=== PATIENT | male | born 1950 | race Caucasian/White ===

== ENCOUNTER 2018-03-03 09:34 | Observation (INO) | payer MEDICARE ==
[~2018-03-03] VITALS: Ht 185.4 cm; Wt 143.9 kg
[2018-03-03] MEDS ORDERED: ASPIRIN 81 MG TABLET CHEW PO ONE (10:00)
[2018-03-03 10:08] LABS: BASOPHILS # (AUTO) 0.04 x10^3/uL (0-0.1); BASOPHILS % (AUTO) 1 % (0-1); EOSINOPHILS # (AUTO) 0.19 x10^3/uL (0-0.4); EOSINOPHILS % (AUTO) 3 % (1-7); LYMPHOCYTES # (AUTO) 1.37 x10^3/uL (1-3.4); LYMPHOCYTES % (AUTO) 18 % (22-44); MD NO; MEAN CORPUSCULAR HEMOGLOBIN 28.5 pg (27.5-34.5); MEAN CORPUSCULAR HGB CONC 33.4 g/dL (33.2-36.2); MEAN CORPUSCULAR VOLUME 85.3 fL (81-97); MEAN PLATELET VOLUME 10.3 fL (7.4-10.4); MONOCYTES # (AUTO) 0.78 x10^3/uL (0.2-0.8); MONOCYTES % (AUTO) 10 % (2-9); NEUTROPHILS # (AUTO) 5.11 x10^3/uL (1.8-6.8); NEUTROPHILS % (AUTO) 68 % (42-75); PLATELET COUNT 159 x10^3/uL (130-400); RED BLOOD COUNT 6.05 x10^6/uL (4.38-5.82); RED CELL DISTRIBUTION WIDTH 14.5 % (9.4-14.8)
[2018-03-03 10:15] LABS: ALANINE AMINOTRANSFERASE 32 U/L (12-78); ALBUMIN 3.8 g/dL (3.4-5.0); ANION GAP 7 mmol/L (5-15); CALCIUM 7.9 mg/dL (8.5-10.1); CHLORIDE 109 mmol/L (98-107); CREATININE 1.13 mg/dL (0.7-1.3)
[2018-03-03 10:19] LABS: ALKALINE PHOSPHATASE 63 U/L (45-117); BILIRUBIN,TOTAL 1.1 mg/dL (0.2-1.0); TROPONIN I < 0.015 ng/mL (0.000-0.045)
[2018-03-03] MEDS ORDERED: ASPIRIN 81 MG TABLET CHEW ONE (10:40)
[2018-03-03] MEDS ORDERED: SODIUM CHLORIDE 0.9% 1,000 ML IV SCH (11:13)
[2018-03-03] MEDS ORDERED: DOCUSATE 100 MG CAPSULE PO PRN (11:30)
[2018-03-03] MEDS ORDERED: ONDANSETRON 2MG/ML, 2ML IVPush PRN (11:30)
[2018-03-03] MEDS ORDERED: ENALAPRILAT 1.25 MG/ML, 2ML IV PRN (11:30)
[2018-03-03] MEDS ORDERED: ACETAMINOPHEN 325 MG TABLET PO PRN (11:30)
[2018-03-03] MEDS ORDERED: LABETALOL 5MG/ML, 20ML IVPush PRN (11:30)
[2018-03-03] MEDS ORDERED: POLYETHYLENE GLYCOL 17 GM PACKET PO PRN (11:30)
[2018-03-03] MEDS ORDERED: hydrALAzine 20 MG/ML, 1ML IV PRN (11:30)
[2018-03-03] MEDS ORDERED: NITROGLYCERIN 0.4 MG/SPRAY SL PRN (11:30)
[2018-03-03] MEDS ORDERED: NITROGLYCERIN 0.4 MG BOTTLE (25 TABS) SL PRN (11:30)
[2018-03-03] MEDS: SODIUM CHLORIDE 0.9% 1,000 ML IV SCH ×4 (12:00→20:09)
[2018-03-03 12:16] LABS: INTERNATIONAL NORMALIZED RATIO 0.99 (0.93-1.1); PROTHROMBIN TIME 10.5 Seconds (9.6-11.5)
[2018-03-03 12:24] LABS: CHOL/HDL RATIO 4.5; CHOLESTEROL, TOTAL 226 mg/dL (140-239); HDL CHOL % 22 % (26-37); HDL CHOLESTEROL (DIRECT) 50 mg/dL (40-60); LDL CHOLESTEROL,CALCULATED 155 mg/dL (54-169); LDL/HDL RATIO 3.1 (0.5-3.0); TRIGLYCERIDES 107 mg/dL (50-200); TROPONIN I < 0.015 ng/mL (0.000-0.045); VLDL CHOLESTEROL 21 mg/dL (0-25)
[2018-03-03 12:58] VITALS: BP 150/84
[2018-03-03] MEDS ORDERED: TICAGRELOR 90 MG TABLET ONE (13:31)
[2018-03-03] MEDS ORDERED: VERAPAMIL 2.5 MG/ML, 2ML ONE (13:31)
[2018-03-03] MEDS ORDERED: MIDAZOLAM 1 MG/ML, 5ML ONE (13:31)
[2018-03-03] MEDS ORDERED: FENTANYL PF 100 MCG/2ML ONE (13:31)
[2018-03-03] MEDS ORDERED: HEPARIN 1,000 UNITS/ML, 10ML ONE (13:32)
[2018-03-03] MEDS ORDERED: BIVALIRUDIN 250 MG ONE (13:32)
[2018-03-03] MEDS ORDERED: hydrALAzine 20 MG/ML, 1ML ONE (14:15)
[2018-03-03] MEDS: HEPARIN 5,000 UNITS/ML, 1ML SQ SCH ×2 (16:20→21:07)
[2018-03-03] MEDS ORDERED: LISINOPRIL 10 MG TABLET ONE (17:02)
[2018-03-03 20:55] VITALS: BP 151/87
[2018-03-03] MEDS ORDERED: ATORVASTATIN 40 MG TABLET PO SCH (21:00)
[2018-03-03] MEDS: LISINOPRIL 10 MG TABLET PO SCH (21:06)
[2018-03-03] MEDS: TICAGRELOR 90 MG TABLET PO SCH (21:06)
[2018-03-04 02:25] VITALS: BP 165/85
[2018-03-04 04:51] LABS: ANION GAP 8 mmol/L (5-15); CALCIUM 7.7 mg/dL (8.5-10.1); CHLORIDE 109 mmol/L (98-107); CREATININE 0.91 mg/dL (0.7-1.3)
[2018-03-04] MEDS: HEPARIN 5,000 UNITS/ML, 1ML SQ SCH (05:30)
[2018-03-04] MEDS ORDERED: METOPROLOL SUCCINATE 25 MG TAB.ER.24H PO SCH (06:00)
[2018-03-04] MEDS: TICAGRELOR 90 MG TABLET PO SCH (08:52)
[2018-03-04] MEDS: LISINOPRIL 10 MG TABLET PO SCH (08:53)
[2018-03-04] MEDS ORDERED: ASPIRIN 81 MG TABLET EC PO SCH (09:00)
[2018-03-04] MEDS ORDERED: SENNA/DOCUSATE TABLET PO SCH (09:00)
[2018-03-04 09:06] VITALS: BP 145/70
[2018-03-04] MEDS ORDERED: TICA90TA PO (12:32)
[2018-03-04] MEDS ORDERED: METO25TA91 PO ×2 (12:32)
[2018-03-04] MEDS ORDERED: ASPI81TA45 PO (12:32)
[2018-03-04] MEDS ORDERED: LISI-167 PO (12:32)
[2018-03-04] MEDS ORDERED: ATOR40TA78 PO (12:32)
== END 2018-03-04 13:59 | disposition home or self-care (01) ==
LOC: ED 10:20 → INTOOBSV 10:29 → EDIP 10:29 → 5SO 12:15
PROVIDERS: ADMIT Internal Medicine; ATTEND Family Medicine
DX: I25.110 Atherosclerotic heart disease of native coronary artery with unstable angina pectoris (principal); I24.9 Acute ischemic heart disease, unspecified; E66.9 Obesity, unspecified; R00.1 Bradycardia, unspecified; E78.5 Hyperlipidemia, unspecified; I10 Essential (primary) hypertension; I25.2 Old myocardial infarction; Z68.41 Body mass index [BMI] 40.0-44.9, adult; Z82.49 Family history of ischemic heart disease and other diseases of the circulatory system; Z87.891 Personal history of nicotine dependence
CPT/HCPCS: 36415; 71045; 80048; 80053; 80061; 84484; 85014; 85018; 85025; 85610; 93005; 93306; 93458; 96372; 96374; 99156; 99157; 99284; C1725; C1769; C1874; C1887; C1894; C9600; G0378; J0360; J0583; J1644; J2250; J3010; Q9967

== ENCOUNTER 2018-06-21 13:08 | Inpatient (IN) | payer MEDICARE ==
[~2018-06-21] VITALS: Ht 185.4 cm; Wt 129.0 kg
[~2018-06-21 13:08] MED LIST: ASPI81TA45 PO; ATOR40TA78 PO; LISI-167 PO; METO25TA91 PO; TICA90TA PO
[2018-06-21] MEDS ORDERED: ASPIRIN 81 MG TABLET CHEW PO ONE (13:30)
[2018-06-21 14:20] LABS: BASOPHILS # (AUTO) 0.06 x10^3/uL (0-0.1); BASOPHILS % (AUTO) 1 % (0-1); EOSINOPHILS # (AUTO) 0.13 x10^3/uL (0-0.4); EOSINOPHILS % (AUTO) 1 % (1-7); LYMPHOCYTES # (AUTO) 0.98 x10^3/uL (1-3.4); LYMPHOCYTES % (AUTO) 11 % (22-44); MD NO; MEAN CORPUSCULAR HEMOGLOBIN 29.1 pg (27.5-34.5); MEAN CORPUSCULAR HGB CONC 33.4 g/dL (33.2-36.2); MEAN CORPUSCULAR VOLUME 87.2 fL (81-97); MEAN PLATELET VOLUME 9.9 fL (7.4-10.4); MONOCYTES # (AUTO) 1.01 x10^3/uL (0.2-0.8); MONOCYTES % (AUTO) 11 % (2-9); NEUTROPHILS # (AUTO) 7.14 x10^3/uL (1.8-6.8); NEUTROPHILS % (AUTO) 77 % (42-75); PLATELET COUNT 222 x10^3/uL (130-400); RED BLOOD COUNT 5.24 x10^6/uL (4.38-5.82); RED CELL DISTRIBUTION WIDTH 14.1 % (9.4-14.8)
[2018-06-21] MEDS ORDERED: ASPIRIN 81 MG TABLET EC ONE (14:20)
[2018-06-21] MEDS ORDERED: MORPHINE SULFATE 4 MG/ML, 1ML ONE (14:21)
[2018-06-21 14:23] LABS: ALANINE AMINOTRANSFERASE 352 U/L (12-78); ALBUMIN 3.2 g/dL (3.4-5.0); ANION GAP 6 mmol/L (5-15); CALCIUM 8.7 mg/dL (8.5-10.1); CHLORIDE 101 mmol/L (98-107); CREATININE 1.18 mg/dL (0.7-1.3)
[2018-06-21 14:27] LABS: ALKALINE PHOSPHATASE 290 U/L (45-117); BILIRUBIN,TOTAL 2.6 mg/dL (0.2-1.0); TOTAL PROTEIN 7.1 g/dL (6.4-8.2); TROPONIN I < 0.015 ng/mL (0.000-0.045)
[2018-06-21] MEDS: MORPHINE SULFATE 4 MG/ML, 1ML IVPush PRN ×2 (14:32→19:37)
[2018-06-21 16:43] LABS: MICROSCOPIC NOT IND
[2018-06-21 16:45] LABS: CULTURE INDICATED? NO
[2018-06-21] MEDS: SODIUM CHLORIDE 0.9% 1,000 ML IV SCH (16:53)
[2018-06-21] MEDS ORDERED: CHLO25TA PO (16:54)
[2018-06-21] MEDS ORDERED: NITROGLYCERIN 0.4 MG/SPRAY SL PRN (17:00)
[2018-06-21] MEDS ORDERED: hydrALAzine 20 MG/ML, 1ML IVPush PRN (17:00)
[2018-06-21] MEDS ORDERED: ONDANSETRON 2MG/ML, 2ML IVPush PRN (17:00)
[2018-06-21] MEDS ORDERED: DOCUSATE 100 MG CAPSULE PO PRN (17:00)
[2018-06-21] MEDS ORDERED: NITROGLYCERIN 0.4 MG BOTTLE (25 TABS) SL PRN (17:00)
--- NOTE | 2018-06-21 17:17 | NUR ---
pt to mri. pt is uncomfortable with getting and mri at this time due to cardiac stent placement. admitting provider made aware of this. mri called to hold on order. pt to send home son at this time to get the stent card before going forward with procedure.
[2018-06-21 17:30] LABS: THYROID STIMULATING HORMONE 2.39 mIU/L (0.358-3.740)
[2018-06-21 20:04] VITALS: BP 113/68
[2018-06-21] MEDS: TICAGRELOR 90 MG TABLET PO SCH (21:56)
[2018-06-21] MEDS: LISINOPRIL 10 MG TABLET PO SCH ×2 (21:56→22:15)
[2018-06-21] MEDS: FAMOTIDINE 20 MG/2 ML IVPush SCH (21:58)
[2018-06-22 01:41] VITALS: BP 94/52
[2018-06-22 06:11] LABS: BASOPHILS # (AUTO) 0.04 x10^3/uL (0-0.1); BASOPHILS % (AUTO) 1 % (0-1); EOSINOPHILS # (AUTO) 0.24 x10^3/uL (0-0.4); EOSINOPHILS % (AUTO) 4 % (1-7); LYMPHOCYTES # (AUTO) 0.96 x10^3/uL (1-3.4); LYMPHOCYTES % (AUTO) 14 % (22-44); MD NO; MEAN CORPUSCULAR HEMOGLOBIN 29.2 pg (27.5-34.5); MEAN CORPUSCULAR HGB CONC 33.7 g/dL (33.2-36.2); MEAN CORPUSCULAR VOLUME 86.4 fL (81-97); MEAN PLATELET VOLUME 9.5 fL (7.4-10.4); MONOCYTES # (AUTO) 0.81 x10^3/uL (0.2-0.8); MONOCYTES % (AUTO) 12 % (2-9); NEUTROPHILS # (AUTO) 4.61 x10^3/uL (1.8-6.8); NEUTROPHILS % (AUTO) 69 % (42-75); PLATELET COUNT 184 x10^3/uL (130-400); RED BLOOD COUNT 4.95 x10^6/uL (4.38-5.82); RED CELL DISTRIBUTION WIDTH 14.5 % (9.4-14.8)
[2018-06-22 06:17] LABS: ALBUMIN 2.8 g/dL (3.4-5.0); ANION GAP 8 mmol/L (5-15); CALCIUM 8.2 mg/dL (8.5-10.1); CHLORIDE 104 mmol/L (98-107)
[2018-06-22 06:22] LABS: ALANINE AMINOTRANSFERASE 787 U/L (12-78); ALKALINE PHOSPHATASE 343 U/L (45-117); BILIRUBIN,TOTAL 2.2 mg/dL (0.2-1.0); CREATININE 0.91 mg/dL (0.7-1.3); TOTAL PROTEIN 6.4 g/dL (6.4-8.2)
[2018-06-22 08:00] VITALS: BP 105/60
[2018-06-22] MEDS: ASPIRIN 81 MG TABLET EC PO SCH (09:00)
[2018-06-22] MEDS: LISINOPRIL 10 MG TABLET PO SCH (09:00)
[2018-06-22] MEDS: TICAGRELOR 90 MG TABLET PO SCH ×2 (09:00→09:20)
[2018-06-22] MEDS: FAMOTIDINE 20 MG/2 ML IVPush SCH ×2 (09:12→21:08)
[2018-06-22] MEDS: SODIUM CHLORIDE 0.9% 1,000 ML IV SCH (09:12)
[2018-06-22 14:00] VITALS: BP 100/62
[2018-06-22 18:45] VITALS: BP 122/77
[2018-06-23] MEDS: SODIUM CHLORIDE 0.9% 1,000 ML IV SCH ×2 (00:01→14:00)
[2018-06-23 01:10] VITALS: BP 93/57
[2018-06-23 06:13] LABS: BASOPHILS # (AUTO) 0.07 x10^3/uL (0-0.1); BASOPHILS % (AUTO) 1 % (0-1); EOSINOPHILS # (AUTO) 0.35 x10^3/uL (0-0.4); EOSINOPHILS % (AUTO) 5 % (1-7); LYMPHOCYTES # (AUTO) 1.43 x10^3/uL (1-3.4); LYMPHOCYTES % (AUTO) 20 % (22-44); MD NO; MEAN CORPUSCULAR HEMOGLOBIN 29.3 pg (27.5-34.5); MEAN CORPUSCULAR HGB CONC 33.7 g/dL (33.2-36.2); MEAN PLATELET VOLUME 9.4 fL (7.4-10.4); MONOCYTES # (AUTO) 0.79 x10^3/uL (0.2-0.8); MONOCYTES % (AUTO) 11 % (2-9); NEUTROPHILS # (AUTO) 4.47 x10^3/uL (1.8-6.8); NEUTROPHILS % (AUTO) 63 % (42-75); PLATELET COUNT 212 x10^3/uL (130-400); RED BLOOD COUNT 4.85 x10^6/uL (4.38-5.82); RED CELL DISTRIBUTION WIDTH 14.3 % (9.4-14.8)
[2018-06-23 06:22] LABS: ALBUMIN 2.8 g/dL (3.4-5.0); ANION GAP 6 mmol/L (5-15); CALCIUM 8.1 mg/dL (8.5-10.1); CHLORIDE 106 mmol/L (98-107)
[2018-06-23 06:26] LABS: ALANINE AMINOTRANSFERASE 502 U/L (12-78); ALKALINE PHOSPHATASE 271 U/L (45-117); BILIRUBIN,TOTAL 1.2 mg/dL (0.2-1.0); CREATININE 0.98 mg/dL (0.7-1.3); TOTAL PROTEIN 6.2 g/dL (6.4-8.2)
[2018-06-23 07:58] VITALS: BP 117/77
[2018-06-23] MEDS: FAMOTIDINE 20 MG/2 ML IVPush SCH ×2 (09:00→20:05)
[2018-06-23] MEDS: ASPIRIN 81 MG TABLET EC PO SCH (09:00)
[2018-06-23] MEDS: TICAGRELOR 90 MG TABLET PO SCH (09:00)
[2018-06-23] MEDS ORDERED: GLYCOPYRROLATE 0.2MG/1ML, 5ML ONE (09:54)
[2018-06-23] MEDS ORDERED: ROCURONIUM 10MG/ML,5ML ONE (09:54)
[2018-06-23] MEDS ORDERED: NEOSTIGMINE 1 MG/ML, 10ML ONE (09:54)
[2018-06-23] MEDS ORDERED: PROPOFOL 10 MG/ML, 20ML ONE (09:54)
[2018-06-23] MEDS ORDERED: CEFOTETAN 2 GM ONE (09:54)
[2018-06-23] MEDS ORDERED: FENTANYL PF 250 MCG/5ML ONE (14:28)
[2018-06-23] MEDS ORDERED: MIDAZOLAM 1 MG/ML, 2ML ONE (14:28)
[2018-06-23] MEDS ORDERED: BUPIVACAINE/PF-EPI 0.5% 1:200K ONE (14:47)
[2018-06-23] MEDS ORDERED: LABETALOL 5MG/ML, 20ML IV PRN (15:00)
[2018-06-23] MEDS ORDERED: ONDANSETRON ODT 8 MG PO PRN (15:00)
[2018-06-23] MEDS ORDERED: MORPHINE SULFATE 4 MG/ML, 1ML IVPush PRN (15:00)
[2018-06-23] MEDS ORDERED: PROMETHAZINE 25 MG/ML, 1ML IV PRN (15:00)
[2018-06-23] MEDS ORDERED: MEPERIDINE/PF 25MG/0.5ML IVPush PRN (15:00)
[2018-06-23] MEDS ORDERED: PROMETHAZINE 12.5 MG SUPP PR PRN (15:00)
[2018-06-23] MEDS ORDERED: OXYcodone 5 MG/5 ML ORAL.SOL UDC PO PRN (15:00)
[2018-06-23] MEDS ORDERED: HYDROmorphone 2 MG/ML, 1ML IVPush PRN (15:00)
[2018-06-23] MEDS ORDERED: PROMETHAZINE 25 MG SUPP PR PRN (15:00)
[2018-06-23] MEDS ORDERED: PROMETHAZINE 25 MG/ML, 1ML IM PRN ×2 (15:00)
[2018-06-23] MEDS ORDERED: FENTANYL PF 100 MCG/2ML ONE ×3 (15:33→16:17)
[2018-06-23] MEDS ORDERED: hydrALAzine 20 MG/ML, 1ML ONE (16:17)
[2018-06-23] MEDS ORDERED: OXYcodone 5 MG/5 ML ORAL.SOL UDC ONE (16:17)
[2018-06-23] MEDS: hydrALAzine 20 MG/ML, 1ML IV PRN ×2 (16:27→16:53)
[2018-06-23] MEDS ORDERED: ONDANSETRON 2MG/ML, 2ML ONE (16:32)
[2018-06-23] MEDS: ONDANSETRON 2MG/ML, 2ML IV PRN (16:34)
[2018-06-23] MEDS: FENTANYL PF 100 MCG/2ML IV PRN ×2 (16:42→16:59)
[2018-06-23] MEDS ORDERED: HYDROmorphone 1 MG/ML, 1ML AMP ONE (17:18)
[2018-06-23 18:42] VITALS: BP 116/72
[2018-06-23] MEDS: morphine SULFATE 10 MG/ML, 1ML IVPush PRN (18:49)
[2018-06-23] MEDS: CEFTRIAXONE PMX 1GM/50ML 50 ML IV SCH (20:05)
[2018-06-24 01:11] VITALS: BP 93/53
[2018-06-24] MEDS: morphine SULFATE 10 MG/ML, 1ML IVPush PRN ×2 (03:32→06:36)
[2018-06-24 07:48] LABS: ALANINE AMINOTRANSFERASE 359 U/L (12-78); ALBUMIN 2.9 g/dL (3.4-5.0); ANION GAP 8 mmol/L (5-15); CALCIUM 7.9 mg/dL (8.5-10.1); CHLORIDE 103 mmol/L (98-107)
[2018-06-24 07:50] LABS: ALKALINE PHOSPHATASE 225 U/L (45-117); BASOPHILS # (AUTO) 0.03 x10^3/uL (0-0.1); BASOPHILS % (AUTO) 0 % (0-1); BILIRUBIN,TOTAL 0.9 mg/dL (0.2-1.0); CREATININE 1.04 mg/dL (0.7-1.3); EOSINOPHILS # (AUTO) 0.03 x10^3/uL (0-0.4); EOSINOPHILS % (AUTO) 0 % (1-7); LYMPHOCYTES # (AUTO) 0.82 x10^3/uL (1-3.4); LYMPHOCYTES % (AUTO) 8 % (22-44); MD NO; MEAN CORPUSCULAR HEMOGLOBIN 28.7 pg (27.5-34.5); MEAN CORPUSCULAR HGB CONC 33.4 g/dL (33.2-36.2); MEAN CORPUSCULAR VOLUME 85.7 fL (81-97); MEAN PLATELET VOLUME 9.2 fL (7.4-10.4); MONOCYTES # (AUTO) 1.01 x10^3/uL (0.2-0.8); MONOCYTES % (AUTO) 10 % (2-9); NEUTROPHILS # (AUTO) 8.14 x10^3/uL (1.8-6.8); NEUTROPHILS % (AUTO) 81 % (42-75); PLATELET COUNT 238 x10^3/uL (130-400); RED BLOOD COUNT 4.79 x10^6/uL (4.38-5.82); RED CELL DISTRIBUTION WIDTH 14.4 % (9.4-14.8); TOTAL PROTEIN 6.4 g/dL (6.4-8.2)
[2018-06-24] MEDS: SODIUM CHLORIDE 0.9% 1,000 ML IV SCH ×2 (08:40→20:37)
[2018-06-24] MEDS: ONDANSETRON 2MG/ML, 2ML IV PRN (08:41)
[2018-06-24] MEDS: ASPIRIN 81 MG TABLET EC PO SCH (08:41)
[2018-06-24] MEDS: TICAGRELOR 90 MG TABLET PO SCH ×2 (08:41→20:37)
[2018-06-24] MEDS: HYDROcodone/APAP 5/325 TABLET PO PRN ×3 (08:41→23:04)
[2018-06-24] MEDS: FAMOTIDINE 20 MG/2 ML IVPush SCH ×2 (08:41→20:37)
[2018-06-24 09:01] VITALS: BP 101/63
[2018-06-24 14:00] VITALS: BP 110/65
[2018-06-24 20:22] VITALS: BP 122/75
[2018-06-24] MEDS: CEFTRIAXONE PMX 1GM/50ML 50 ML IV SCH (20:37)
[2018-06-25 01:59] VITALS: BP 119/69
[2018-06-25] MEDS: SODIUM CHLORIDE 0.9% 1,000 ML IV SCH ×2 (05:37→16:00)
[2018-06-25 08:32] LABS: ALANINE AMINOTRANSFERASE 244 U/L (12-78); ALBUMIN 2.8 g/dL (3.4-5.0); ANION GAP 7 mmol/L (5-15); CALCIUM 7.9 mg/dL (8.5-10.1); CHLORIDE 104 mmol/L (98-107); CREATININE 0.82 mg/dL (0.7-1.3)
[2018-06-25 08:34] LABS: ALKALINE PHOSPHATASE 184 U/L (45-117); BILIRUBIN,TOTAL 1.6 mg/dL (0.2-1.0); TOTAL PROTEIN 6.3 g/dL (6.4-8.2)
[2018-06-25] MEDS: TICAGRELOR 90 MG TABLET PO SCH (08:48)
[2018-06-25] MEDS: FAMOTIDINE 20 MG/2 ML IVPush SCH (08:48)
[2018-06-25] MEDS: ASPIRIN 81 MG TABLET EC PO SCH (08:48)
[2018-06-25 09:14] LABS: MEAN CORPUSCULAR HGB CONC 33.5 g/dL (33.2-36.2); MEAN CORPUSCULAR VOLUME 86.7 fL (81-97); MEAN PLATELET VOLUME 8.8 fL (7.4-10.4); PLATELET COUNT 223 x10^3/uL (130-400); RED BLOOD COUNT 4.64 x10^6/uL (4.38-5.82); RED CELL DISTRIBUTION WIDTH 14.5 % (9.4-14.8)
[2018-06-25 09:15] LABS: MD YES
[2018-06-25 09:16] LABS: EOS% (MANUAL) 1 % (1-7); LYMPH#(MANUAL) 1.18 x10^3/uL (1-3.4); LYMPHS% (MANUAL) 12 % (22-44); MONOS#(MANUAL) 0.88 x10^3/uL (0.3-2.7); MONOS% (MANUAL) 9 % (2-9); SEG#(MANUAL) 7.64 x10^3/uL (1.8-6.8); SEGS% (MANUAL) 78 % (42-75)
[2018-06-25 09:17] LABS: <PLATELET ESTIMATE> ADEQUATE; <PLT MORPHOLOGY> NORMAL PLT MORPH; <RBC MORPHOLOGY> NORMAL
[2018-06-25] MEDS ORDERED: OXYC-293 PO (12:33)
[2018-06-25] MEDS ORDERED: FAMO20TA37 PO (12:33)
[2018-06-25] MEDS ORDERED: METR500T PO (12:38)
[2018-06-25] MEDS ORDERED: LEVO500T8 PO (12:38)
== END 2018-06-25 16:45 | disposition home or self-care (01) | DRG 418 ==
LOC: ED 16:12 → EDIP 16:53 → 3NE 19:40
PROVIDERS: ADMIT Internal Medicine; ATTEND Internal Medicine
PROC: 0FT44ZZ Resection of Gallbladder, Percutaneous Endoscopic Approach (ICD-10-PCS; principal; 2018-06-23 15:00)
DX: K81.0 Acute cholecystitis (principal); E87.1 Hypo-osmolality and hyponatremia; E66.9 Obesity, unspecified; E78.5 Hyperlipidemia, unspecified; I10 Essential (primary) hypertension; I25.10 Atherosclerotic heart disease of native coronary artery without angina pectoris; K21.9 Gastro-esophageal reflux disease without esophagitis; K66.0 Peritoneal adhesions (postprocedural) (postinfection); Z79.02 Long term (current) use of antithrombotics/antiplatelets; Z82.49 Family history of ischemic heart disease and other diseases of the circulatory system; Z95.5 Presence of coronary angioplasty implant and graft; Z68.37 Body mass index [BMI] 37.0-37.9, adult
CPT/HCPCS: 36415; 71046; 74181; 76700; 78226; 80053; 80074; 81003; 82550; 83690; 84443; 84484; 85025; 88304; 93005; 99285; G0378; J0696; J1170; J2250; J2405; J2704; J2710; J3010; J3490; A9537; C1760; J0360; J2270; J7030

== ENCOUNTER 2019-02-28 15:47 | Emergency (ER) | payer MEDICARE ==
[~2019-02-28] VITALS: Ht 185.4 cm; Wt 136.0 kg
[~2019-02-28 15:47] MED LIST changes: +CHLO25TA PO; +FAMO20TA37 PO; +LEVO500T8 PO; +METR500T PO; +OXYC-293 PO
[2019-02-28 15:51] VITALS: BP 183/85
== END 2019-02-28 16:54 | disposition home or self-care (01) ==
LOC: ED 16:45
DX: M70.22 Olecranon bursitis, left elbow (principal); I10 Essential (primary) hypertension; Z90.49 Acquired absence of other specified parts of digestive tract; Z98.61 Coronary angioplasty status; X58.XXXA Exposure to other specified factors, initial encounter; Y93.89 Activity, other specified; Y92.69 Other specified industrial and construction area as the place of occurrence of the external cause; Y99.0 Civilian activity done for income or pay
CPT/HCPCS: 36415; 84550; 99284